=== PATIENT | male | born 1985 | race Two or more races ===

== ENCOUNTER 2022-11-04 11:14 | Emergency (ER) | payer OTHER ==
[~2022-11-04] VITALS: Ht 177.8 cm; Wt 97.5 kg
[2022-11-04] MEDS ORDERED: PROAIR RESPICL90 MCG IH (12:02)
[2022-11-04] MEDS ORDERED: KETO10TA2 PO (15:33)
== END 2022-11-04 15:35 | disposition home or self-care (01) ==
LOC: ER 11:14
DX: R13.10 Dysphagia, unspecified (principal)